=== PATIENT | male | born 1960 | race Caucasian/White ===

== ENCOUNTER 2016-12-17 18:40 | Inpatient (IN) | payer MEDICAID ==
[~2016-12-17] VITALS: Ht 182.9 cm; Wt 118.3 kg
[2016-12-17] MEDS ORDERED: LISI5TAB7 PO (19:13)
[2016-12-17] MEDS ORDERED: SODIUM CHLORIDE 0.9% 1,000 ML IV ONE (19:13)
[2016-12-17] MEDS ORDERED: METF1000 PO (19:13)
[2016-12-17] MEDS ORDERED: GABA800T2 PO (19:13)
[2016-12-17 19:20] LABS: HEMATOCRIT 49.3 % (39.2-51.8); HEMOGLOBIN 16.4 g/dL (13.7-18.0); WHITE BLOOD COUNT 16.9 x10^3/uL (3.4-10)
[2016-12-17 19:29] LABS: ASPARTATE AMINO TRANSFERASE 18 U/L (15-37); BLOOD UREA NITROGEN 24 mg/dL (7-18)
[2016-12-17] MEDS ORDERED: ONDANSETRON 2MG/ML, 2ML IVPush ONE (19:30)
[2016-12-17] MEDS ORDERED: SODIUM CHLORIDE FLUSH 10ML SYR IVF ONE (19:30)
[2016-12-17] MEDS ORDERED: ONDANSETRON 2MG/ML, 2ML ONE (19:39)
[2016-12-17] MEDS ORDERED: MORPHINE SULFATE 4 MG/ML, 1ML ONE ×2 (19:39→21:03)
[2016-12-17] MEDS: MORPHINE SULFATE 4 MG/ML, 1ML IVPush PRN ×2 (19:42→21:09)
[2016-12-17 19:49] LABS: IS PT STATUS REG ER OR PRE ER? YES
[2016-12-17] MEDS ORDERED: SODIUM CHLORIDE FLUSH 10ML SYR IVF PRN (21:30)
[2016-12-17] MEDS ORDERED: DOCUSATE 100 MG CAPSULE PO PRN (23:00)
[2016-12-17] MEDS ORDERED: TEMAZEPAM 15 MG CAPSULE PO PRN (23:00)
[2016-12-17] MEDS ORDERED: HYDROmorphone 2 MG/ML, 1ML IVPush PRN (23:00)
[2016-12-17] MEDS ORDERED: ENALAPRILAT 1.25 MG/ML, 2ML IVPush PRN (23:00)
[2016-12-17] MEDS ORDERED: ONDANSETRON 2MG/ML, 2ML IVPush PRN (23:00)
[2016-12-17 23:10] VITALS: BP 137/81
[2016-12-17] MEDS: GABAPENTIN 400 MG CAPSULE PO SCH (23:22)
[2016-12-17] MEDS: methylPREDNISolone SOD SUCC 40 MG/ML IVPush SCH (23:23)
[2016-12-17] MEDS: ENOXAPARIN 40 MG/0.4 ML SQ SCH (23:23)
[2016-12-17] MEDS: INSULIN ASPART 100 UNITS/ML, PEN SQ-INSULIN SCH (23:30)
[2016-12-17] MEDS ORDERED: PNEUMOCOCCAL 23 VACCINE IM-VACC ONE (23:45)
[2016-12-18] MEDS ORDERED: OXYcodone IR 5MG TABLET ONE (07:13)
[2016-12-18 08:18] LABS: BLOOD UREA NITROGEN 23 mg/dL (7-18)
[2016-12-18 08:24] LABS: HEMATOCRIT 45.7 % (39.2-51.8); HEMOGLOBIN 15.3 g/dL (13.7-18.0)
[2016-12-18] MEDS: LISINOPRIL 5 MG TABLET PO SCH (09:18)
[2016-12-18] MEDS: GABAPENTIN 400 MG CAPSULE PO SCH ×3 (09:18→20:17)
[2016-12-18] MEDS: methylPREDNISolone SOD SUCC 40 MG/ML IVPush SCH ×2 (09:19→14:56)
[2016-12-18] MEDS: INSULIN ASPART 100 UNITS/ML, PEN SQ-INSULIN SCH ×4 (09:35→20:20)
[2016-12-18] MEDS ORDERED: morphine SULFATE 10 MG/ML, 1ML IVPush PRN (10:00)
[2016-12-18] MEDS: OXYcodone IR 5MG TABLET PO PRN ×3 (11:04→19:40)
[2016-12-18 12:31] VITALS: BP 123/77
[2016-12-18] MEDS ORDERED: KETOROLAC 30 MG/1 ML IVPush PRN (15:00)
[2016-12-18] MEDS ORDERED: INSULIN ASPART 100 UNITS/ML, PEN SQ-INSULIN SCH (16:00)
[2016-12-18] MEDS ORDERED: DIAZEPAM 2 MG TABLET PO PRN (17:00)
[2016-12-18] MEDS: METHOCARBAMOL 750 MG TABLET PO SCH ×2 (17:42→20:17)
[2016-12-18] MEDS ORDERED: methylPREDNISolone 4mg DOSE PACK PO SCH (18:30)
[2016-12-18 20:37] VITALS: BP 129/73
[2016-12-18] MEDS: ENOXAPARIN 40 MG/0.4 ML SQ SCH (23:00)
[2016-12-19] MEDS: OXYcodone IR 5MG TABLET PO PRN ×4 (00:05→13:32)
[2016-12-19] MEDS: SUMATRIPTAN 50 MG TABLET PO PRN ×2 (00:05→08:54)
[2016-12-19 02:00] VITALS: BP 122/80
[2016-12-19 05:09] LABS: HEMATOCRIT 44.6 % (39.2-51.8); HEMOGLOBIN 14.8 g/dL (13.7-18.0)
[2016-12-19 05:20] LABS: BLOOD UREA NITROGEN 27 mg/dL (7-18)
[2016-12-19 05:25] LABS: ASPARTATE AMINO TRANSFERASE 12 U/L (15-37)
[2016-12-19] MEDS: METHOCARBAMOL 750 MG TABLET PO SCH ×2 (05:27→12:24)
[2016-12-19 08:30] VITALS: BP 111/76
[2016-12-19] MEDS: LISINOPRIL 5 MG TABLET PO SCH (08:38)
[2016-12-19] MEDS: GABAPENTIN 400 MG CAPSULE PO SCH (08:38)
[2016-12-19] MEDS: INSULIN ASPART 100 UNITS/ML, PEN SQ-INSULIN SCH ×2 (08:48→11:53)
[2016-12-19 12:28] VITALS: BP 130/81
[2016-12-19] MEDS ORDERED: SUMATRIPTAN 50 MG TABLET PO PRN (12:30)
[2016-12-19] MEDS ORDERED: NORT25CA PO (13:23)
[2016-12-19] MEDS ORDERED: METH750T2 PO (13:23)
[2016-12-19] MEDS ORDERED: IBUP-1484 PO (13:23)
[2016-12-19] MEDS ORDERED: SUMA50TA4 PO (13:23)
[2016-12-19] MEDS ORDERED: OXYC5TAB3 PO (13:23)
[2016-12-19] MEDS ORDERED: METH4TAB PO (13:23)
[2016-12-19] MEDS ORDERED: ASPI-621 PO (15:39)
[2016-12-19] MEDS ORDERED: SIMV10TA PO (15:39)
[2016-12-19] MEDS ORDERED: GABA800T2 PO (17:13)
== END 2016-12-19 16:11 | disposition home or self-care (01) | DRG 552 ==
LOC: ED 20:05 → EDIP 21:20 → 4EST 22:46 → 4WST 12-19 05:24 → DCLOUNGE 12-19 15:15
DX: M54.81 Occipital neuralgia (principal); E11.42 Type 2 diabetes mellitus with diabetic polyneuropathy; I16.0 Hypertensive urgency; E66.01 Morbid (severe) obesity due to excess calories; Z68.35 Body mass index [BMI] 35.0-35.9, adult; F17.200 Nicotine dependence, unspecified, uncomplicated; I10 Essential (primary) hypertension; I65.23 Occlusion and stenosis of bilateral carotid arteries; J32.0 Chronic maxillary sinusitis; M54.12 Radiculopathy, cervical region
CPT/HCPCS: 36415; 70450; 70551; 71010; 80048; 80053; 81003; 82010; 82800; 82962; 83036; 83605; 84484; 85025; 85651; 86141; 93005; 93880; 96361; 96374; 96375; 96376; J1170; J1650; J1815; J2405; J7509; J2920; J7030

== ENCOUNTER 2017-02-04 19:04 | Inpatient (IN) | payer MEDICAID ==
[~2017-02-04] VITALS: Ht 182.9 cm; Wt 118.6 kg
[~2017-02-04 19:04] MED LIST: ASPI-621 PO; GABA800T2 PO; IBUP-1484 PO; LISI5TAB7 PO; METF1000 PO; METH4TAB PO; METH750T2 PO; NORT25CA PO; OXYC5TAB3 PO; SIMV10TA PO; SUMA50TA4 PO
[2017-02-04] MEDS ORDERED: ASPIRIN 81 MG TABLET CHEW ONE (19:29)
[2017-02-04] MEDS ORDERED: SODIUM CHLORIDE FLUSH 10ML SYR IVF ONE ×2 (19:30→20:30)
[2017-02-04] MEDS ORDERED: ASPIRIN 81 MG TABLET CHEW PO ONE (19:30)
[2017-02-04 19:36] LABS: HEMATOCRIT 53.4 % (39.2-51.8); HEMOGLOBIN 17.9 g/dL (13.7-18.0); WHITE BLOOD COUNT 14.9 x10^3/uL (3.4-10)
[2017-02-04] MEDS ORDERED: METO1TAB7 PO (19:37)
[2017-02-04] MEDS ORDERED: NITROGLYCERIN SINGLE TAB 0.4 MG SL ONE (19:39)
[2017-02-04 19:48] LABS: BLOOD UREA NITROGEN 19 mg/dL (7-18)
[2017-02-04 19:53] LABS: IS PT STATUS REG ER OR PRE ER? YES
[2017-02-04] MEDS ORDERED: NITROGLYCERIN SINGLE TAB 0.4 MG SL PRN (20:00)
[2017-02-04] MEDS ORDERED: ONDANSETRON 2MG/ML, 2ML ONE (20:21)
[2017-02-04] MEDS ORDERED: morphine SULFATE 10 MG/ML, 1ML ONE ×2 (20:21→21:05)
[2017-02-04] MEDS ORDERED: ONDANSETRON 2MG/ML, 2ML IVPush ONE (20:30)
[2017-02-04] MEDS ORDERED: SODIUM CHLORIDE 0.9% 1,000ML IVBOLUS ONE (20:30)
[2017-02-04] MEDS ORDERED: MORPHINE SULFATE 4 MG/ML, 1ML IVPush PRN ×2 (20:30→21:30)
[2017-02-04] MEDS ORDERED: SODIUM CHLORIDE FLUSH 10ML SYR IVF PRN (22:00)
[2017-02-04] MEDS ORDERED: POLYETHYLENE GLYCOL 17 GM PACKET PO PRN (22:30)
[2017-02-04] MEDS ORDERED: ONDANSETRON 2MG/ML, 2ML IVPush PRN (22:30)
[2017-02-04] MEDS ORDERED: ACETAMINOPHEN 325 MG TABLET PO PRN (22:30)
[2017-02-04] MEDS ORDERED: ZOLPIDEM 5MG TABLET PO PRN (22:30)
[2017-02-04] MEDS ORDERED: DOCUSATE 100 MG CAPSULE PO PRN (22:30)
[2017-02-04] MEDS ORDERED: NITROGLYCERIN 0.4 MG BOTTLE (25 TABS) SL PRN (22:30)
[2017-02-04] MEDS ORDERED: BISACODYL 10 MG SUPP PR PRN (22:30)
[2017-02-04] MEDS ORDERED: hydrALAzine 20 MG/ML, 1ML IVPush PRN (22:30)
[2017-02-04] MEDS ORDERED: LABETALOL 5MG/ML, 20ML IVPush PRN (22:30)
[2017-02-04] MEDS: morphine SULFATE 10 MG/ML, 1ML IVPush PRN (23:12)
[2017-02-04] MEDS: SODIUM CHLORIDE 0.9% 1,000 ML IV SCH (23:12)
[2017-02-04 23:18] VITALS: BP 102/73
[2017-02-04 23:42] LABS: IS PT STATUS REG ER OR PRE ER? NO
[2017-02-05] MEDS: GABAPENTIN 400 MG CAPSULE PO SCH ×3 (00:05→15:49)
[2017-02-05] MEDS: INSULIN ASPART 100 UNITS/ML, PEN SQ-INSULIN SCH ×3 (00:06→12:25)
[2017-02-05] MEDS: OXYcodone IR 5MG TABLET PO PRN ×2 (00:37→15:30)
[2017-02-05 03:04] VITALS: BP 112/62
[2017-02-05] MEDS: morphine SULFATE 10 MG/ML, 1ML IVPush PRN ×3 (03:40→12:25)
[2017-02-05] MEDS ORDERED: ASPIRIN 325 MG TABLET EC PO SCH (06:00)
[2017-02-05 06:08] LABS: HEMATOCRIT 45.7 % (39.2-51.8); HEMOGLOBIN 15.2 g/dL (13.7-18.0); WHITE BLOOD COUNT 13.9 x10^3/uL (3.4-10)
[2017-02-05 06:19] LABS: BLOOD UREA NITROGEN 22 mg/dL (7-18)
[2017-02-05 06:30] LABS: IS PT STATUS REG ER OR PRE ER? NO
[2017-02-05] MEDS ORDERED: REGADENOSON 0.4 MG/5 ML SYRINGE ONE (08:07)
[2017-02-05 09:00] VITALS: BP 131/89
[2017-02-05] MEDS ORDERED: LACTULOSE 10 GM/15 ML UDC PO SCH (09:00)
[2017-02-05] MEDS: SODIUM CHLORIDE 0.9% 1,000 ML IV SCH (09:04)
[2017-02-05 12:51] VITALS: BP 120/76
[2017-02-05] MEDS ORDERED: KETOROLAC 30 MG/1 ML IVPush SCH (15:30)
[2017-02-05] MEDS ORDERED: METH750T87 PO (15:35)
== END 2017-02-05 18:10 | disposition home or self-care (01) | DRG 313 ==
LOC: ED 21:33 → EDIP 21:34 → 5SO 22:22
PROVIDERS: ADMIT Hospitalist; ATTEND Hospitalist
DX: R07.89 Other chest pain (principal); I25.10 Atherosclerotic heart disease of native coronary artery without angina pectoris; E11.9 Type 2 diabetes mellitus without complications; N28.9 Disorder of kidney and ureter, unspecified; E66.9 Obesity, unspecified; Z68.35 Body mass index [BMI] 35.0-35.9, adult; I10 Essential (primary) hypertension; Z83.3 Family history of diabetes mellitus; Z87.891 Personal history of nicotine dependence
CPT/HCPCS: 36415; 71010; 74176; 78452; 80048; 80061; 81001; 82040; 82962; 83036; 83735; 83880; 84100; 84443; 84484; 85025; 85379; 85651; 93005; 93017; 96374; 96375; J1815; J1885; J2405; J2785; A9502; C9898; J2270; J7030

== ENCOUNTER 2019-09-24 20:47 | Inpatient (IN) | payer MEDICAID ==
[~2019-09-24] VITALS: Ht 182.9 cm; Wt 117.9 kg
[~2019-09-24 20:47] MED LIST changes: -ASPI-621 PO; +ASPI81TA45 PO; -GABA800T2 PO; +GABA800T5 PO; -IBUP-1484 PO; +IBUP-1902 PO; +METH750T87 PO; +METO1TAB7 PO; -NORT25CA PO; +NORT25CA78 PO
[2019-09-24] MEDS ORDERED: TRAZ-175 PO (21:13)
--- NOTE | 2019-09-24 21:16 | NUR ---
PT WHEELED BACK TO ROOM, CHANGED INTO GOWN ,RESTING ON GURNEY, ON MONITOR, SLIGHTLY TACHYCARDIC ALL OTHER VS WNL. SKIN COLOR WNL WARM AND DRY, FCS no SOB, NAD, GIVEN WARM BLANKET FOR COMFORT, CALL LIGHT ON LAP, LASHAE LUND AT BS FOR EVAL AND POC.
--- NOTE | 2019-09-24 21:17 | NUR ---
PT TO RAD VIA WHEELCHAIR, NAD
[2019-09-24] MEDS ORDERED: ONDANSETRON 2MG/ML, 2ML IVPush ONE (21:30)
[2019-09-24] MEDS ORDERED: SODIUM CHLORIDE FLUSH 10ML SYR IVF ONE (21:30)
--- NOTE | 2019-09-24 21:57 | NUR ---
pt back from radiology and CT, medicated per JUN, resting in [facility], denies additional needs at this time, NAD, call light on lap, watching television, skin color WNL warm and dry, WCTM. waiting for US and lab results.
[2019-09-24] MEDS ORDERED: MORPHINE SULFATE 4 MG/ML, 1ML ONE ×2 (22:02→23:01)
[2019-09-24] MEDS ORDERED: ONDANSETRON 2MG/ML, 2ML ONE (22:02)
[2019-09-24] MEDS: MORPHINE SULFATE 4 MG/ML, 1ML IVPush PRN ×2 (22:04→23:03)
[2019-09-24 22:21] LABS: MEAN CORPUSCULAR HEMOGLOBIN 30.1 pg (27.5-34.5); MEAN CORPUSCULAR HGB CONC 33.1 g/dL (33.2-36.2); MEAN CORPUSCULAR VOLUME 90.8 fL (81-97); MEAN PLATELET VOLUME 9.3 fL (7.4-10.4); PLATELET COUNT 256 x10^3/uL (130-400); RED BLOOD COUNT 5.17 x10^6/uL (4.38-5.82); RED CELL DISTRIBUTION WIDTH 14.2 % (9.4-14.8)
[2019-09-24 22:28] LABS: MD YES
[2019-09-24 22:30] LABS: ALBUMIN 3.9 g/dL (3.4-5.0); ANION GAP 10 mmol/L (5-15); CALCIUM 9.2 mg/dL (8.5-10.1); CHLORIDE 99 mmol/L (98-107)
[2019-09-24 22:36] LABS: ALANINE AMINOTRANSFERASE 24 U/L (12-78); ALKALINE PHOSPHATASE 65 U/L (45-117); BILIRUBIN,TOTAL 0.6 mg/dL (0.2-1.0); TROPONIN I < 0.015 ng/mL (0.000-0.045)
--- NOTE | 2019-09-24 22:59 | NUR ---
pt resting in [place], NAD, RESP WNL, skin color WNL warm and dry, call light on lap, WCTM. Pt medicated per JUN. waiting for dispo
[2019-09-24] MEDS ORDERED: COLCHICINE 0.6 MG CAPSULE PO ONE (23:00)
--- NOTE | 2019-09-24 23:20 | NUR ---
pt to be admitted to med tele, [place], NAD, VSS, RESP WNL, skin color WNL warm and dry. WCTM. waiting for admit bed
--- NOTE | 2019-09-24 23:33 | NUR ---
report called to Delia BAILEY, pt care to be transferred once pt is taken up to room, no change in condition at this time.
[2019-09-24] MEDS ORDERED: nitroglycerin PO (23:39)
[2019-09-24] MEDS ORDERED: HYDR-3246 PO (23:39)
[2019-09-24 23:41] LABS: <PLATELET ESTIMATE> ADEQUATE; <PLT MORPHOLOGY> NORMAL PLT MORPH; <RBC MORPHOLOGY> NORMAL; BAND#(MANUAL) 0.51 x10^3/uL; BANDS%(MANUAL) 3 % (0-7); LYMPH#(MANUAL) 2.03 x10^3/uL (1-3.4); LYMPHS% (MANUAL) 12 % (22-44); MONOS#(MANUAL) 1.01 x10^3/uL (0.3-2.7); MONOS% (MANUAL) 6 % (2-9); SEG#(MANUAL) 13.35 x10^3/uL (1.8-6.8); SEGS% (MANUAL) 79 % (42-75)
[2019-09-24] MEDS ORDERED: NITROGLYCERIN 0.4 MG BOTTLE (25 TABS) SL PRN (23:45)
[2019-09-24 23:59] VITALS: BP 117/88
[2019-09-25] MEDS ORDERED: ONDANSETRON 2MG/ML, 2ML IVPush PRN
[2019-09-25] MEDS ORDERED: BISACODYL 10 MG SUPP PR PRN
[2019-09-25] MEDS ORDERED: POLYETHYLENE GLYCOL 17 GM PACKET PO PRN
[2019-09-25] MEDS ORDERED: ACETAMINOPHEN 325 MG TABLET PO PRN
[2019-09-25] MEDS ORDERED: hydrALAzine 20 MG/ML, 1ML IVPush PRN
[2019-09-25] MEDS: HEPARIN 5,000 UNITS/ML, 1ML SQ SCH ×4 (00:38→23:09)
[2019-09-25] MEDS: HYDROcodone/APAP 5/325 TABLET PO PRN ×2 (00:38→20:44)
[2019-09-25 00:45] VITALS: BP 117/88
[2019-09-25] MEDS ORDERED: ALBUTEROL SULFATE 2.5 MG/3 ML NPPB PRN (01:00)
[2019-09-25] MEDS ORDERED: NICOTINE 14MG/24 HR PATCH.TD24 TD ONE (01:30)
[2019-09-25] MEDS: morphine SULFATE 10 MG/ML, 1ML IVPush PRN ×5 (04:17→21:56)
[2019-09-25 05:03] LABS: BASOPHILS # (AUTO) 0.05 x10^3/uL (0-0.1); BASOPHILS % (AUTO) 0 % (0-1); EOSINOPHILS # (AUTO) 0.33 x10^3/uL (0-0.4); EOSINOPHILS % (AUTO) 2 % (1-7); LYMPHOCYTES # (AUTO) 3.11 x10^3/uL (1-3.4); LYMPHOCYTES % (AUTO) 22 % (22-44); MD NO; MEAN CORPUSCULAR HEMOGLOBIN 30.1 pg (27.5-34.5); MEAN CORPUSCULAR HGB CONC 32.8 g/dL (33.2-36.2); MEAN CORPUSCULAR VOLUME 91.6 fL (81-97); MEAN PLATELET VOLUME 9.2 fL (7.4-10.4); MONOCYTES # (AUTO) 0.87 x10^3/uL (0.2-0.8); MONOCYTES % (AUTO) 6 % (2-9); NEUTROPHILS # (AUTO) 9.68 x10^3/uL (1.8-6.8); NEUTROPHILS % (AUTO) 69 % (42-75); PLATELET COUNT 248 x10^3/uL (130-400); RED BLOOD COUNT 4.77 x10^6/uL (4.38-5.82); RED CELL DISTRIBUTION WIDTH 14.3 % (9.4-14.8)
[2019-09-25 05:08] LABS: ALANINE AMINOTRANSFERASE 22 U/L (12-78); ALBUMIN 3.5 g/dL (3.4-5.0); ANION GAP 8 mmol/L (5-15); CALCIUM 8.8 mg/dL (8.5-10.1); CHLORIDE 97 mmol/L (98-107); CREATININE 1.36 mg/dL (0.7-1.3)
[2019-09-25 05:13] LABS: ALKALINE PHOSPHATASE 61 U/L (45-117); BILIRUBIN,TOTAL 0.6 mg/dL (0.2-1.0); CHOL/HDL RATIO 5.1; CHOLESTEROL, TOTAL 189 mg/dL (140-239); HDL CHOL % 20 % (26-37); HDL CHOLESTEROL (DIRECT) 37 mg/dL (40-60); LDL CHOLESTEROL,CALCULATED 115 mg/dL (54-169); LDL/HDL RATIO 3.1 (0.5-3.0); TOTAL PROTEIN 7.2 g/dL (6.4-8.2); TRIGLYCERIDES 184 mg/dL (50-200); TROPONIN I < 0.015 ng/mL (0.000-0.045); VLDL CHOLESTEROL 37 mg/dL (0-25)
[2019-09-25] MEDS: ASPIRIN 81 MG TABLET EC PO SCH (08:07)
[2019-09-25] MEDS: LISINOPRIL 10 MG TABLET PO SCH (08:07)
[2019-09-25] MEDS: GABAPENTIN 400 MG CAPSULE PO SCH ×3 (08:07→20:43)
[2019-09-25] MEDS: HYDROCHLOROTHIAZIDE 25 MG TABLET PO SCH (08:07)
[2019-09-25] MEDS: METOPROLOL SUCCINATE 100 MG TAB.ER.24H PO SCH (08:11)
[2019-09-25] MEDS: metFORMIN 500 MG TABLET PO SCH ×2 (08:12→20:43)
[2019-09-25 09:12] VITALS: BP 114/76
[2019-09-25 10:07] LABS: TROPONIN I < 0.015 ng/mL (0.000-0.045)
[2019-09-25] MEDS: INSULIN LISPRO 100 UNITS/ML, PEN SQ-INSULIN SCH ×3 (12:39→20:58)
[2019-09-25 14:05] VITALS: BP 121/77
[2019-09-25 20:15] VITALS: BP 157/88
[2019-09-25] MEDS ORDERED: SIMVASTATIN 10 MG TABLET PO SCH (21:00)
[2019-09-25] MEDS ORDERED: NICOTINE 14MG/24 HR PATCH.TD24 TD SCH (22:30)
[2019-09-25] MEDS ORDERED: LIDODERM 5% PATCH TD ONE (22:30)
[2019-09-26 00:04] VITALS: BP 118/82
[2019-09-26] MEDS: HYDROcodone/APAP 5/325 TABLET PO PRN ×2 (02:31→13:58)
[2019-09-26] MEDS: morphine SULFATE 10 MG/ML, 1ML IVPush PRN ×3 (03:31→11:56)
[2019-09-26] MEDS ORDERED: LORazepam 2 MG/ML, 1ML IVPush ONE (05:00)
[2019-09-26 06:01] LABS: BASOPHILS # (AUTO) 0.07 x10^3/uL (0-0.1); BASOPHILS % (AUTO) 1 % (0-1); EOSINOPHILS % (AUTO) 3 % (1-7); LYMPHOCYTES # (AUTO) 3.11 x10^3/uL (1-3.4); LYMPHOCYTES % (AUTO) 26 % (22-44); MD NO; MEAN CORPUSCULAR HEMOGLOBIN 30.5 pg (27.5-34.5); MEAN CORPUSCULAR HGB CONC 33.3 g/dL (33.2-36.2); MEAN CORPUSCULAR VOLUME 91.4 fL (81-97); MONOCYTES # (AUTO) 0.86 x10^3/uL (0.2-0.8); MONOCYTES % (AUTO) 7 % (2-9); NEUTROPHILS # (AUTO) 7.64 x10^3/uL (1.8-6.8); NEUTROPHILS % (AUTO) 63 % (42-75); PLATELET COUNT 244 x10^3/uL (130-400); RED BLOOD COUNT 4.88 x10^6/uL (4.38-5.82); RED CELL DISTRIBUTION WIDTH 14.4 % (9.4-14.8)
[2019-09-26 06:13] LABS: ALBUMIN 3.7 g/dL (3.4-5.0); ANION GAP 8 mmol/L (5-15); CALCIUM 9.3 mg/dL (8.5-10.1); CHLORIDE 97 mmol/L (98-107); CREATININE 1.38 mg/dL (0.7-1.3)
[2019-09-26 06:49] VITALS: BP 120/78
[2019-09-26] MEDS ORDERED: REGADENOSON 0.4 MG/5 ML SYRINGE ONE (07:57)
[2019-09-26] MEDS: HEPARIN 5,000 UNITS/ML, 1ML SQ SCH (08:00)
[2019-09-26] MEDS: INSULIN LISPRO 100 UNITS/ML, PEN SQ-INSULIN SCH ×2 (08:00→11:00)
[2019-09-26] MEDS: ASPIRIN 81 MG TABLET EC PO SCH (08:06)
[2019-09-26] MEDS: metFORMIN 500 MG TABLET PO SCH (08:06)
[2019-09-26] MEDS: HYDROCHLOROTHIAZIDE 25 MG TABLET PO SCH (08:06)
[2019-09-26] MEDS: GABAPENTIN 400 MG CAPSULE PO SCH (08:06)
[2019-09-26] MEDS: LISINOPRIL 10 MG TABLET PO SCH (09:00)
[2019-09-26] MEDS: METOPROLOL SUCCINATE 100 MG TAB.ER.24H PO SCH (09:00)
[2019-09-26] MEDS ORDERED: LIDODERM REMOVE PATCH NOTE XX ONE (10:30)
[2019-09-26 13:22] VITALS: BP 130/89
== END 2019-09-26 15:43 | disposition home or self-care (01) | DRG 303 ==
LOC: ED 21:53 → EDIP 23:08 → 5SO 23:51 → DCLOUNGE 09-26 15:43
PROVIDERS: ADMIT Hospitalist; ATTEND Family Medicine
DX: I25.110 Atherosclerotic heart disease of native coronary artery with unstable angina pectoris (principal); E87.1 Hypo-osmolality and hyponatremia; F11.20 Opioid dependence, uncomplicated; D72.829 Elevated white blood cell count, unspecified; E11.65 Type 2 diabetes mellitus with hyperglycemia; E66.9 Obesity, unspecified; E78.5 Hyperlipidemia, unspecified; G89.29 Other chronic pain; G89.11 Acute pain due to trauma; I10 Essential (primary) hypertension; M47.812 Spondylosis without myelopathy or radiculopathy, cervical region; M25.511 Pain in right shoulder; M54.9 Dorsalgia, unspecified; M79.601 Pain in right arm; Z68.35 Body mass index [BMI] 35.0-35.9, adult; Z79.82 Long term (current) use of aspirin; Z90.49 Acquired absence of other specified parts of digestive tract
CPT/HCPCS: 36415; 71045; 78452; 80053; 80061; 80069; 82962; 83036; 83735; 83880; 84484; 85025; 85379; 93005; 93017; 93306; G0378; J1644; J2405; J2785; A9502; J1815; J2060; J2270

== ENCOUNTER 2020-09-06 20:56 | Observation (INO) | payer MEDICAID ==
[~2020-09-06] VITALS: Ht 182.9 cm; Wt 121.6 kg
[~2020-09-06 20:56] MED LIST changes: +HYDR-3248 PO; +METH-640 PO; -METH750T2 PO; -OXYC5TAB3 PO; +OXYC5TAB98 PO; +TRAZ-175 PO; +nitroglycerin PO
--- NOTE | 2020-09-06 21:30 | NUR ---
assessment made. chart up for MD to see. c/o chest pain. anxious
--- NOTE | 2020-09-06 22:15 | NUR ---
ERP at bedside.
[2020-09-06] MEDS ORDERED: NITROGLYCERIN SINGLE TAB 0.4 MG SL ONE (22:43)
--- NOTE | 2020-09-06 22:50 | NUR ---
patient c/o left sided chest pain. medicated.
--- NOTE | 2020-09-06 22:55 | NUR ---
clinical laboratory technologist at bedside for blood draw.
[2020-09-06] MEDS ORDERED: NITROGLYCERIN SINGLE TAB 0.4 MG SL PRN (23:00)
[2020-09-06 23:03] LABS: BASOPHILS % (AUTO) 1 % (0-1); EOSINOPHILS % (AUTO) 4 % (1-7); LYMPHOCYTES % (AUTO) 27 % (22-44); MEAN CORPUSCULAR HEMOGLOBIN 30.9 pg (27.5-34.5); MEAN CORPUSCULAR HGB CONC 34.3 g/dL (33.2-36.2); MEAN PLATELET VOLUME 9.6 fL (7.4-10.4); MONOCYTES % (AUTO) 9 % (2-9); NEUTROPHILS % (AUTO) 60 % (42-75); PLATELET COUNT 241 x10^3/uL (130-400); RED BLOOD COUNT 4.74 x10^6/uL (4.38-5.82); RED CELL DISTRIBUTION WIDTH 13.7 % (9.4-14.8)
[2020-09-06 23:04] LABS: MD NO
[2020-09-06 23:16] LABS: ALBUMIN 3.3 g/dL (3.4-5.0); ANION GAP 3 mmol/L (5-15); CALCIUM 8.8 mg/dL (8.5-10.1); CHLORIDE 102 mmol/L (98-107); CREATININE 0.97 mg/dL (0.7-1.3)
[2020-09-06 23:20] LABS: TROPONIN I < 0.015 ng/mL (0.000-0.045)
--- NOTE | 2020-09-06 23:41 | NUR ---
all labs and xray resulted. chart up for MD to re-eval. patient sleeping at this time. VSS
--- NOTE | 2020-09-07 00:31 | NUR ---
ERP at bedside for re-evaluation
[2020-09-07] MEDS ORDERED: SODIUM CHLORIDE FLUSH 10ML SYR IVF PRN (01:30)
--- NOTE | 2020-09-07 01:39 | NUR ---
bed assigned. report to LEO Saleem.
[2020-09-07 02:00] VITALS: BP 158/87
[2020-09-07] MEDS ORDERED: NITROGLYCERIN 0.4 MG/SPRAY SL PRN (02:00)
[2020-09-07] MEDS ORDERED: NITROGLYCERIN 0.4 MG BOTTLE (25 TABS) SL PRN (02:00)
[2020-09-07] MEDS ORDERED: MORPHINE SULFATE 4 MG/ML, 1ML IVPush PRN (03:00)
[2020-09-07] MEDS ORDERED: ACETAMINOPHEN 325 MG TABLET PO PRN ×2 (03:00→04:30)
[2020-09-07] MEDS ORDERED: ENOXAPARIN 40 MG/0.4 ML SQ SCH (04:30)
[2020-09-07] MEDS ORDERED: TRAZODONE 150MG TABLET PO PRN (04:30)
[2020-09-07] MEDS ORDERED: ONDANSETRON 2MG/ML, 2ML IVPush PRN (04:30)
[2020-09-07] MEDS ORDERED: LABETALOL 5MG/ML, 20ML IVPush PRN (04:30)
[2020-09-07] MEDS: GABAPENTIN 400 MG CAPSULE PO SCH ×2 (05:46→08:40)
[2020-09-07] MEDS: morphine SULFATE 10 MG/ML, 1ML IV PRN ×2 (05:54→11:01)
[2020-09-07] MEDS ORDERED: ASPIRIN 325 MG TABLET EC PO SCH (06:00)
[2020-09-07 06:04] VITALS: BP 177/93
[2020-09-07 06:09] LABS: TROPONIN I < 0.015 ng/mL (0.000-0.045)
[2020-09-07 06:35] LABS: ALANINE AMINOTRANSFERASE 25 U/L (12-78); ALBUMIN 3.3 g/dL (3.4-5.0); ALKALINE PHOSPHATASE 72 U/L (45-117); BILIRUBIN, DIRECT < 0.1 mg/dL (0.1-0.2); BILIRUBIN,INDIRECT < 0.4 mg/dL (0.0-2.0); BILIRUBIN,TOTAL 0.5 mg/dL (0.2-1.0); CHOL/HDL RATIO 5.2; CHOLESTEROL, TOTAL 207 mg/dL (140-239); HDL CHOL % 19 % (26-37); HDL CHOLESTEROL (DIRECT) 40 mg/dL (40-60); LDL CHOLESTEROL,CALCULATED 142 mg/dL (54-169); LDL/HDL RATIO 3.6 (0.5-3.0); TRIGLYCERIDES 125 mg/dL (50-200); VLDL CHOLESTEROL 25 mg/dL (0-25)
[2020-09-07 07:18] VITALS: BP 146/84
[2020-09-07] MEDS ORDERED: REGADENOSON 0.4 MG/5 ML SYRINGE ONE (08:45)
[2020-09-07] MEDS: HYDROCHLOROTHIAZIDE 25 MG TABLET PO SCH ×2 (09:00→10:48)
[2020-09-07] MEDS ORDERED: SENNA/DOCUSATE TABLET PO SCH (09:00)
[2020-09-07] MEDS ORDERED: METOPROLOL SUCCINATE 100 MG TAB.ER.24H PO SCH (09:00)
[2020-09-07] MEDS ORDERED: LISINOPRIL 10 MG TABLET PO SCH (09:00)
[2020-09-07 10:48] VITALS: BP 151/93
[2020-09-07] MEDS ORDERED: INSULIN LISPRO 100 UNITS/ML, PEN SQ-INSULIN SCH (11:00)
[2020-09-07 11:45] LABS: TROPONIN I < 0.015 ng/mL (0.000-0.045)
[2020-09-07] MEDS ORDERED: GLIP5TAB10 PO (12:23)
[2020-09-07 12:24] VITALS: BP 148/79
[2020-09-07] MEDS ORDERED: OMNIPAQUE 350 MG/ML, 100ML BOTTLE ONE (13:02)
[2020-09-07] MEDS ORDERED: SIMVASTATIN 10 MG TABLET PO SCH (21:00)
== END 2020-09-07 13:50 | disposition home or self-care (01) ==
LOC: ED 21:26 → INTOOBSV 09-07 02:21 → EDIP 09-07 02:21 → 5SO 09-07 02:34 → DCLOUNGE 09-07 13:45
PROVIDERS: ADMIT Family Medicine; ATTEND Internal Medicine
DX: R07.89 Other chest pain (principal); I10 Essential (primary) hypertension; I20.0 Unstable angina; E11.40 Type 2 diabetes mellitus with diabetic neuropathy, unspecified; E11.65 Type 2 diabetes mellitus with hyperglycemia; E78.5 Hyperlipidemia, unspecified; G89.29 Other chronic pain; F11.20 Opioid dependence, uncomplicated; E66.9 Obesity, unspecified; N13.30 Unspecified hydronephrosis; F17.200 Nicotine dependence, unspecified, uncomplicated; Z79.84 Long term (current) use of oral hypoglycemic drugs; Z79.899 Other long term (current) drug therapy; Z79.82 Long term (current) use of aspirin
CPT/HCPCS: 36415; 71045; 71275; 78452; 80048; 80061; 80076; 82040; 82962; 83036; 84484; 85025; 93005; 93017; 96372; 96374; 96375; 96376; 99285; A9502; C9898; G0378; J1650; J1815; J2270; J2785; Q9967

== ENCOUNTER 2020-10-02 00:04 | Emergency (ER) | payer MEDICAID ==
[~2020-10-02] VITALS: Ht 185.4 cm; Wt 110.0 kg
[~2020-10-02 00:04] MED LIST changes: +GLIP5TAB10 PO
--- NOTE | 2020-10-02 00:55 | NUR ---
PT C/O OF STERNAL CHEST PAIN SINCE 2199 LAST NIGHT. PT DENIES RADIATION OF PAIN. STATES 01/28 SUDDEN ONSET. REPORTS SWEATING, SOB, AND NAUSEA. ATTACHED TO CARD/SP02/BP MONITORS. VSS WITH ELEVATED BP. PATIENT IS IN MILD DISTRESS. A&OX4 BED IN LOW POSITION, RILS ENGAGED. CALL LIGHT WITHIN REACH. [facility]
[2020-10-02] MEDS ORDERED: ONDANSETRON 2MG/ML, 2ML IVPush ONE (01:00)
[2020-10-02] MEDS ORDERED: MORPHINE SULFATE 4 MG/ML, 1ML IVPush PRN (01:00)
[2020-10-02] MEDS ORDERED: SODIUM CHLORIDE FLUSH 10ML SYR IVF ONE (01:00)
[2020-10-02] MEDS ORDERED: ASPIRIN 81 MG TABLET CHEW PO ONE (01:00)
[2020-10-02] MEDS ORDERED: NITROGLYCERIN OINT 2%, 1GM TP ONE ×2 (01:00→01:15)
[2020-10-02] MEDS ORDERED: LABETALOL 5MG/ML, 20ML IVPush ONE (01:00)
[2020-10-02 01:02] LABS: BASOPHILS % (AUTO) 1 % (0-1); EOSINOPHILS % (AUTO) 4 % (1-7); LYMPHOCYTES % (AUTO) 29 % (22-44); MEAN CORPUSCULAR HEMOGLOBIN 30.6 pg (27.5-34.5); MEAN CORPUSCULAR HGB CONC 34.5 g/dL (33.2-36.2); MEAN PLATELET VOLUME 9.6 fL (7.4-10.4); MONOCYTES % (AUTO) 8 % (2-9); NEUTROPHILS % (AUTO) 58 % (42-75); PLATELET COUNT 217 x10^3/uL (130-400); RED BLOOD COUNT 5.04 x10^6/uL (4.38-5.82); RED CELL DISTRIBUTION WIDTH 13.3 % (9.4-14.8)
[2020-10-02 01:10] LABS: ALANINE AMINOTRANSFERASE 32 U/L (12-78); ALBUMIN 3.6 g/dL (3.4-5.0); ANION GAP 5 mmol/L (5-15); CALCIUM 9.4 mg/dL (8.5-10.1); CHLORIDE 99 mmol/L (98-107); CREATININE 1.18 mg/dL (0.7-1.3)
[2020-10-02 01:14] LABS: ALKALINE PHOSPHATASE 75 U/L (45-117); BILIRUBIN,TOTAL 0.2 mg/dL (0.2-1.0); TOTAL PROTEIN 7.7 g/dL (6.4-8.2); TROPONIN I < 0.015 ng/mL (0.000-0.045)
[2020-10-02] MEDS ORDERED: LABETALOL 5MG/ML, 20ML ONE (01:15)
[2020-10-02] MEDS ORDERED: MORPHINE SULFATE 4 MG/ML, 1ML ONE (01:16)
[2020-10-02] MEDS ORDERED: ASPIRIN 81 MG TABLET CHEW ONE (01:16)
[2020-10-02] MEDS ORDERED: ONDANSETRON 2MG/ML, 2ML ONE (01:16)
[2020-10-02 01:30] VITALS: BP 148/85
--- NOTE | 2020-10-02 02:28 | NUR ---
Break RN: discharge instructions given. All questions and concerns addressed. Patient ambulatory with a steady gait. Belongings with patient.
== END 2020-10-02 02:30 | disposition home or self-care (01) ==
LOC: ED 01:05
DX: R07.2 Precordial pain (principal); R42 Dizziness and giddiness; I44.7 Left bundle-branch block, unspecified; E11.40 Type 2 diabetes mellitus with diabetic neuropathy, unspecified; I10 Essential (primary) hypertension; F17.200 Nicotine dependence, unspecified, uncomplicated
CPT/HCPCS: 36415; 71045; 80053; 83690; 83880; 84484; 85025; 93005; 96374; 96375; 99285; J2270; J2405

== ENCOUNTER 2020-11-18 19:09 | Emergency (ER) | payer MEDICAID ==
[~2020-11-18] VITALS: Ht 182.9 cm; Wt 116.7 kg
--- NOTE | 2020-11-18 22:14 | NUR ---
WHEELED TO ROOM FROM LOBBY. TANYA.
[2020-11-18 22:20] LABS: BASOPHILS % (AUTO) 1 % (0-1); EOSINOPHILS % (AUTO) 1 % (1-7); LYMPHOCYTES % (AUTO) 8 % (22-44); MEAN CORPUSCULAR HGB CONC 34.4 g/dL (33.2-36.2); MEAN PLATELET VOLUME 9.4 fL (7.4-10.4); MONOCYTES % (AUTO) 9 % (2-9); NEUTROPHILS % (AUTO) 81 % (42-75); PLATELET COUNT 228 x10^3/uL (130-400); RED CELL DISTRIBUTION WIDTH 13.5 % (9.4-14.8)
[2020-11-18] MEDS ORDERED: SODIUM CHLORIDE 0.9% 1,000ML IVBOLUS ONE (22:30)
[2020-11-18] MEDS ORDERED: SODIUM CHLORIDE FLUSH 10ML SYR IVF ONE (22:30)
[2020-11-18] MEDS ORDERED: DIPHENHYDRAMINE 50 MG/ML, 1ML IVPush ONE (22:30)
[2020-11-18] MEDS ORDERED: METOCLOPRAMIDE 5 MG/ML, 2ML IVPush ONE (22:30)
[2020-11-18] MEDS ORDERED: KETOROLAC 30 MG/1 ML IVPush ONE (22:30)
[2020-11-18 22:32] LABS: ALANINE AMINOTRANSFERASE 32 U/L (12-78); ALBUMIN 3.7 g/dL (3.4-5.0); CALCIUM 9.4 mg/dL (8.5-10.1); CREATININE 1.05 mg/dL (0.7-1.3)
[2020-11-18 22:34] LABS: ALKALINE PHOSPHATASE 80 U/L (45-117); BILIRUBIN,TOTAL 0.4 mg/dL (0.2-1.0); TOTAL PROTEIN 7.9 g/dL (6.4-8.2)
[2020-11-18] MEDS ORDERED: DIPHENHYDRAMINE 50 MG/ML, 1ML ONE (22:46)
[2020-11-18] MEDS ORDERED: METOCLOPRAMIDE 5 MG/ML, 2ML ONE (22:46)
[2020-11-18] MEDS ORDERED: KETOROLAC 30 MG/1 ML ONE (22:47)
--- NOTE | 2020-11-18 22:55 | NUR ---
PT C/O OF HEADACHE, BODY ACHES, FEVER, CONGESTION, AND DRY MOUTH SINCE 1400 TODAY. ATTACHED TO CARD/SP02/BP MONITORS. MOES. CHRISTI. PT AMBULATED TO BATHROOM AND BACKTO ROOM WITH STEADY GAIT. BED IN LOW. RAILS ENGAGED. CALL LIGHT ON LAP. TM
[2020-11-18 23:06] LABS: ANION GAP 6 mmol/L (5-15); CHLORIDE 99 mmol/L (98-107)
[2020-11-18 23:19] LABS: MICROSCOPIC NOT IND
[2020-11-19 00:40] VITALS: BP 120/82
--- NOTE | 2020-11-19 01:11 | NUR ---
Patient/Caregiver given discharge instructions and they have confirmed that they understand the instructions. Patient ambulatory with steady gait. NAD, all questions answered appropriately, denies additional needs at this time. No personal belongings left in room after discharge. PT GIVEN TAXI VOUCHER FOR SAFE DC. COULD NOT GET A HOLD OF PT SON FORR PICKUP.
== END 2020-11-19 01:13 | disposition home or self-care (01) ==
LOC: ED 19:39
DX: U07.1 COVID-19 (principal); E87.6 Hypokalemia; E87.1 Hypo-osmolality and hyponatremia; B34.9 Viral infection, unspecified; R11.2 Nausea with vomiting, unspecified; R00.0 Tachycardia, unspecified; I10 Essential (primary) hypertension; E11.9 Type 2 diabetes mellitus without complications; F17.200 Nicotine dependence, unspecified, uncomplicated; Z90.49 Acquired absence of other specified parts of digestive tract
CPT/HCPCS: 36415; 71045; 80053; 81003; 83605; 85025; 87040; 93005; 96361; 96374; 96375; 99285; J1200; J1885; J2765; J7030; U0003; U0005